=== PATIENT | male | born 1950 | race Caucasian/White ===

== ENCOUNTER 2017-03-15 16:46 | Emergency (ER) | payer OTHER ==
[2017-03-15 16:57] VITALS: BP 128/69
--- NOTE | 2017-03-15 17:16 | UC ---
Respiratory Complaint HPI - HPI Summary HPI Summary: This is a 67 yo gentleman with DM and HTN and a significant smoking history who presents with a 2 month history of cough and congestion. He feels that his cough has become worse over the last 2 days. He reports assoc fever and night sweats and 15 pound weight loss over the last 2 months or so. Denies associated GI complaints. He states he has never been diagnosed with COPD and is not on any inhaled medications. - History of Current Complaint Chief Complaint: UCRespiratory Stated Complaint: CHEST CONGESTION Time Seen by Provider: 03/15/17 16:53 - Allergies/Home Medications Allergies/Adverse Reactions: Allergies Allergy/AdvReac Type Severity Reaction Status Date / Time Amoxicillin [From Augmentin] Allergy Hives Verified 03/15/17 16:57 Clavulanic Acid Allergy Hives Verified 03/15/17 16:57 [From Augmentin] PMH/Surg Hx/FS Hx/Imm Hx Endocrine History: Diabetes Cardiovascular History: Hypertension Respiratory History: Other Other Respiratory History: significant smoking history. No formal diagnosis of COPD - Surgical History Surgical History: Yes Surgery Procedure, Year, and Place: collapsed lung?- rib removal. Tonsilectomy. appy. hernia. wrist - Social History Alcohol Use: None Substance Use Type: None Smoking Status (MU): Heavy Every Day Tobacco Smoker Type: Cigarettes Amount Used/How Often: 1 pack daily Review of Systems Constitutional: Fever, Chills, Fatigue Skin: Negative Eyes: Negative ENT: Negative Respiratory: Shortness Of Breath, Cough Cardiovascular: Negative Gastrointestinal: Negative Genitourinary: Negative Motor: Negative Neurovascular: Negative Musculoskeletal: Negative Neurological: Negative Psychological: Negative All Other Systems Reviewed And Are Negative: Yes Physical Exam Triage Information Reviewed: Yes Appearance: Well-Appearing, Other: - head tremor Vital Signs: Initial Vital Signs Temp 100.3 F 03/15/17 16:51 Pulse 108 03/15/17 16:51 Resp 18 03/15/17 16:51 BP 128/69 03/15/17 16:51 Pulse Ox 97 03/15/17 16:51 Vital Signs Reviewed: Yes ENT: Positive: Normal ENT inspection Neck: Positive: Supple, Nontender, No Lymphadenopathy Respiratory: Positive: No respiratory distress, No accessory muscle use, Rhonchi , Wheezing Cardiovascular: Positive: RRR, No Murmur Abdomen Description: Positive: Nontender Neurological Exam: Normal UC Diagnostic Evaluation - Laboratory O2 Sat by Pulse Oximetry: 97 Diagnostic Studies Comment: CXR - Possible RLL infiltrate Respiratory Course/Dx - Course Course Of Treatment: This is a 67 yo gentleman with a significant smoking history as well as DM and HTN who presents with c/o cough, hakeem and fever. There is a possible RLL infiltrate on CXR, he is febrile and has diffuse rhonchi and wheezing. Will treat for suspected COPD exacerbation and CAP. - Differential Dx/Diagnosis Differential Diagnosis/HQI/PQRI: Bronchitis, Exacerbation Of COPD, Lower Resp Infection Provider Diagnoses: 1. Pneumonia. 2. COPD exacerbation Discharge - Discharge Plan Condition: Stable Disposition: HOME Prescriptions: Albuterol/Ipratropium RESP(NF) [Combivent Respimat(NF)] 1 aer IN Q4H PRN #1 inh PRN Reason: cough, SOB Azithromyxin NELSON (NF) [Z-Nelson (Zithromax) 250 mg tabs #6] 2 tab PO .TODAY, THEN 1 DAILY #6 tab Cefdinir [Cefdinir 300 MG CAP] 300 mg PO BID #14 cap Methylprednisolone [Medrol Dosepak 4 MG*] 4 mg PO .SEE NELSON INSTRUCTION #1 nelson Spiriva Inhaler DEVICE* [Tiotropium Inhaler DEVICE*] 1 puff INH DAILY #1 device Patient Education Materials: COPD (Chronic Obstructive Pulmonary Disease) (ED) , Community Acquired Pneumonia (ED) Referrals: Zoya Masters MD [Primary Care Provider] - As Soon As Possible Additional Instructions: Activity: As tolerated Instructions: 1. Please take all medications as directed 2. I suspect you have COPD, please discuss this further with your primary care provider
--- NOTE | 2017-03-15 17:40 | RAD ---
INDICATION: Congestion, cough, fever. History of tobacco use. COMPARISON: November 14, 2011 TECHNIQUE: Dual energy PA and routine lateral views of the chest were obtained. REPORT: Elevated lung volumes and diffuse mild prominence of the interstitial markings. Mild asymmetric alveolar and interstitial consolidation at the RIGHT lower lung zone. No focal pulmonary lesion, pleural effusion, pneumothorax. The heart, pulmonary vasculature, and mediastinal contours are unremarkable. Post partial resection of the RIGHT fifth rib posterolaterally. No rib fracture or suspicious focal osseous lesion evident. IMPRESSION: 1. Stigmata of obstructive lung disease. 2. Mild asymmetric alveolar and interstitial consolidation at the RIGHT lower lung zone without volume loss to favor atelectasis is suspicious for inflammatory infiltrate given the clinical context.
== END 2017-03-15 18:00 | disposition home or self-care (01) ==
LOC: UCCORT 16:46
DX: J18.9 Pneumonia, unspecified organism (principal); J44.1 Chronic obstructive pulmonary disease with (acute) exacerbation; E11.9 Type 2 diabetes mellitus without complications; I10 Essential (primary) hypertension; Z72.0 Tobacco use
CPT/HCPCS: 71020; 99212; G0463